=== PATIENT | female | born 1985 | race Caucasian/White ===

== ENCOUNTER → 2018-01-03 12:47 | Outpatient (CLI) | payer OTHER, SELFPAY ==
--- NOTE | 2018-01-03 12:49 | STE_ITS ---
Reason For Study: Chest Pain; Dyspnea Stress Results Protocol: Shaka Protocol Maximum Predicted HR: 190 bpm Target HR: 162 bpm% Max imum Predicted HR: 91 % DurationHeart Rate Stage (mm:ss) (bpm) BPCom ment Baseline 70 110/68 No Chest Pain [facility]aka Protocol Stage I 3:00 10 6 116/64No Chest Pain [facility]aka Protocol Stage II 3:00 12 6 120/66No Chest Pain Shaka Protocol Stage III 3:00 16 0 140/64No Chest Pain; Mild Dyspnea Shaka Protocol Stage IV 1:30 17 3 / No Chest Pain; Moderate Dyspnea Recovery 93 112/64 No Chest Pain; No Dyspnea Stress Duration: 10:30 mm:ss Maximum Stress HR: 173 bpmME TS: 13 Baseline Echocardiogram Findings The estimated ejection fraction is 65 %. Stress Echo Wall motion Data Resting WMIntermediate WMStress WM Resting Wall Motion Wall Motion Stress No regional wall motion No regional wall motion abnormalities noted. abnormalities noted. EKG Data Normal intervals are noted. The patient exercised according to the regular Shaka protocol for a total duration of 10:30. The maximum heart rate attained was 179 beats per minute. This was 94% of maximum predicted heart rate. The patient exercised into stage 4 of the Shaka protocol. At peak exercise, upsloping ST changes only were noted, which did not meet the criteria for ischemia. No clinical angina was noted. No arrhythmias noted. Interpretation Summary The estimated ejection fraction is 65 %. Normal, adequate, treadmill echocardiogram. Negative for ischemia by EKG and echocardiographic criteria. No anginal symptoms noted. No arrhythmias noted. Average exercise capacity for age. Appropriate BP response to exercise. Final LVEF is 75%. No complications. Ordering Physician: Hakeem Goff Referring Physician: Hakeem Goff Performed By: Lisbet Dykes, RDCS, RVT
--- NOTE | 2018-01-03 12:49 | ECHOD_ITS ---
Reason For Study: CHEST PAIN Procedure This was a 2D Doppler, Color Flow transthoracic echocardiogram. Exam performed in department. Left Ventricle Normal size and thickness. The estimated ejection fraction is 60 %. No regional wall motion abnormalities noted. Right Ventricle Normal size and thickness. Normal systolic function. Atria Normal left atrium. Normal right atrium. Normal atrial septum. Mitral Valve The mitral valve is structurally normal. No prolapse or stenosis seen. Mild (1+) posteriorly directed mitral valve insufficiency. Tricuspid Valve Normal tricuspid valve. Trivial tricuspid valve insufficiency. Right ventricular systolic pressure estimated to be 17 mmHg. Aortic Valve Normal aortic valve. Trisinus/trileaflet aortic valve. Pulmonic Valve Normal pulmonic valve. Great Vessels Normal aortic root. Normal arch. Normal inferior vena cava. Inferior vena cava collapse with sniff. Pericardium/Pleural No pericardial effusion. MMode/2D Measurements & Calculations LVIDd: 4.2 cm IVSd: 0.69 cm Ao root diam: 2.4 cm LVIDs: 3.3 cm LVPWd: 0.69 cm RVDd: 2.9 cm FS: 21.7 % LAV(MOD-bp): 25.6 ml LA A4 area: 10.5 cm2 RA A4 area: 9.7 cm2 LAV(MOD-bp) Indexed: 17.6 ml/m2 LAV(MOD-sp2): 25.6 ml LAV(MOD-sp4): 18.5 ml Doppler Measurements & Calculations MV E max anthony: 82.9 cm/sec Lat Peak E' Anthony: 17.6 cm/sec Med Peak E' Anthony: 16.6 cm/sec MV A max anthony: 24.3 cm/sec E/E' lat: 4.7 E/E' med: 5.0 MV E/A: 3.4 Ao V2 max: 130.5 cm/sec LV V1 max: 94.1 cm/sec TR max anthony: 175.1 cm/sec Ao max P.8 mmHg LV V1 max P.5 mmHg TR max P.3 mmHg Interpretation Summary The estimated ejection fraction is 60 %. Mild (1+) posteriorly directed mitral valve insufficiency. Trivial tricuspid valve insufficiency. Right ventricular systolic pressure estimated to be 17 mmHg. There is no comparison study available. Ordering Physician: Hakeem Goff Referring Physician: ARVIND CONLEY Performed By: Lisbet Dykes, RDCS, RVT
== END ==
PROVIDERS: Visit Provider Internal Medicine Cardiovascular Disease
DX: R07.9 Chest pain, unspecified (principal); R53.83 Other fatigue; R00.2 Palpitations; R06.00 Dyspnea, unspecified
CPT/HCPCS: 93017; 93306; 93350